=== PATIENT | female | born 1965 | race Hispanic/Latino ===

== ENCOUNTER → 2017-11-30 | Day surgery (SDC) | payer OTHER ==
[2017-11-26 09:20] LABS: ANION GAP 17.3 mmol/L (8-16); BLOOD UREA NITROGEN 6 mg/dL (7-26); BUN/CREATININE RATIO 9 (6-25); CALCIUM 9.6 mg/dL (8.4-10.2); CARBON DIOXIDE 24 mmol/L (22-29); CHLORIDE 104 mmol/L (98-107); CREATININE, SERUM 0.69 mg/dL (0.57-1.11); EST GLOMERULAR FILTRATION RATE > 60 ML/MIN (60-); GLUCOSE 166 mg/dL (74-118); POTASSIUM 4.3 mmol/L (3.5-5.1); SODIUM 141 mmol/L (136-145)
[~2017-11-30] MED LIST: ACETAMINOPHEN 1000 MG/100 ML IV ONE; BUPIVACAINE HCL 0.5% INJ 30 ML VIAL INJ ONE; CEFAZOLIN SOD 2 GM/D5W 50ML 50 ML IV ONE; DEXAMETHASONE SOD PHOS INJ 4 MG/ML VIAL ONE; ESTRADIOL1 MG PO; FENTANYL CITRATE/PF 100MCG/2 ML INJ ONE; KETOROLAC TROMETHAMINE 30 MG/ML VIAL ONE; LEVOTHYROXINE50 MCG PO; LIDOCAINE HCL 2% LOCAL INJ 5 ML SDV VIAL INJ ONE; METFORMIN HCL850 MG PO; MIDAZOLAM HCL 2 MG/2 ML VIAL ONE; MUPIROCIN 2% OINT 22 GM TUBE ONE; OMEPRAZOLE40 MG PO; ONDANSETRON HCL INJ 2 MG/ML VIAL ONE; PROPOFOL IV EMULSION 10 MG/ML 20 ML VIAL ONE; ROCURONIUM BROMIDE 10 MG/ML 5ML VIAL ONE; SEVOFLURANE INHAL SOLN 250 ML PEN BTL ONE; SIMVASTATIN40 MG PO; TOUJEO SC; TRULICITY PO; ULTRAM50 MG PO; VENLAFAXINE HCL75 MG PO; VITAMIN D1000 UNI1
[2017-11-30 10:00] VITALS: BP 130/74
--- NOTE | 2017-11-30 11:42 | Operative Report ---
DATE OF PROCEDURE: November 30, 2017 [employer]UC[employer]ER: None. PREOPERATIVE DIAGNOSES 1. Secondary tear of Achilles tendon. 2. Retrocalcaneal exostosis. 3. Equinus. 4. Plantar fasciitis. 5. Exostosis, plantar calcaneus, right. POSTOPERATIVE DIAGNOSES 1. Secondary tear of Achilles tendon. 2. Retrocalcaneal exostosis. 3. Equinus. 4. Plantar fasciitis. 5. Exostosis, plantar calcaneus, right. OPERATION PERFORMED 1. Secondary repair of Achilles tendon, right foot. 2. Gastrocnemius recession, right foot. 3. Endoscopic plantar fasciotomy, right foot. 4. Excision of calcaneal spurs, retrocalcaneal and plantar calcaneal, right foot. 5. Application of human allograft to augment tendon repair and to prevent adhesions. 6. Application of posterior splint. PATHOLOGY: None. ANESTHESIA: General anesthetic. HEMOSTASIS: Pneumatic thigh tourniquet at 350 mmHg. ESTIMATED BLOOD LOSS: Less than 10 mL. MATERIALS: 2.5 x 10 mm SonicAnchor times 2. AlloWrap 4 x 4 cm, reference number [id number], lot [id number], expiration 29 December 2018. PROCEDURE IN DETAIL: Under mild sedation, the patient was brought to the operating room and placed on the operating table in the supine position. Following IV sedation, anesthesia was obtained with a general anesthetic. At this point, the right foot was scrubbed, prepped and draped in the usual aseptic manner. The patient was positioned in prone position. The pneumatic thigh tourniquet was inflated to 350 mmHg. Secondary repair of Achilles tendon: Attention was then directed to the plantar aspect of the right foot, where a linear incision was made overlying the insertion of the Achilles tendon. The incision was deepened via sharp and blunt dissection to retract or cauterize neurovascular structures as necessary. It was deepened down to the level of the tendon. At this point, the tendon was then reflected off of the Achilles tendon. There was noted to be large retrocalcaneal exostosis. Utilizing sharp and blunt dissection, this was removed. The distal end of the Achilles tendon was thin, denuded. All nonviable tissue was removed. It was cleaned. It was debrided down to clean, viable tendon. Attention was directed to the gastrocnemius aponeurosis where a linear incision was made overlying this aponeurosis. The incision was deepened down to the level of the aponeurosis with care to retract or cauterize neurovascular structures as necessary. Once the aponeurosis was isolated, a Myron type of lengthening was then performed through and through in order to be able to reattach the Achilles back into the calcaneus. The Achilles was then reattached back into the calcaneus after the area was cleaned down to clean, viable, bleeding bone. Then 2.5 x 10 mm anchors were used times 2. It was reattached utilizing FiberWire suture. There were noted to be adequate alignment and adequate tension clinically and adequate placement of the anchors with intraop fluoroscopy. EPF: Attention was directed to the medial aspect of the right foot where a linear incision was made overlying the plantar fascia. The incision was deepened via sharp and blunt dissection, taking care to retract or cauterize neurovascular structures as necessary. It was deepened down to the level of the plantar fascia. The trocar and cannula were inserted. The trocar was removed. The camera was inserted. Medial, central and lateral bands were visualized. Medial and central bands were transected through and through, leaving the lateral band intact. Exostectomy, retrocalcaneus and plantar calcaneus. Under the use of intraop fluoroscopy, the exostosis at the retrocalcaneus was removed before reattachment back to the Achilles tendon utilizing a bone rongeur, a rasp, and an osteotome. The exostosis at the plantar aspect of the calcaneus was also removed utilizing a power rasp under the use of intraop fluoroscopy. All incisions were flushed with copious amounts of normal sterile saline solution. The AlloWrap was cut into 3. It was used in all 3 incisions in order to augment the repair, to decrease the inflammatory response, and to decrease adhesions to the area. The incisions were then closed, closing the deepest layer with 3-0 Vicryl, 4-0 Vicryl, and 4-0 nylon. Twenty mL of 0.5 Marcaine plain was given postop. A clean dressing was applied consisting of Adaptic ointment, 4 x 4's, Kerlix, and Webril. A posterior splint was applied and was secured utilizing an Isaiah bandage. The patient tolerated the procedure and anesthesia well without complications. She was transported to the recovery room with vital signs stable and vascular status intact to both feet. The patient will be discharged home when she meets criteria. She was given instructions to be strictly nonweightbearing, to ice and elevate the foot while at rest, to follow up with me in the office and to call the office if any questions, concerns or any problems arise. Job#: [id number]
== END | disposition home or self-care (01) ==
LOC: OR 05:23
PROVIDERS: ATTEND Podiatrist Foot & Ankle Surgery
DX: S86.011A Strain of right Achilles tendon, initial encounter (principal); M77.31 Calcaneal spur, right foot; M72.2 Plantar fascial fibromatosis; M24.574 Contracture, right foot; G47.33 Obstructive sleep apnea (adult) (pediatric); E11.9 Type 2 diabetes mellitus without complications; E03.9 Hypothyroidism, unspecified; K21.9 Gastro-esophageal reflux disease without esophagitis; E66.01 Morbid (severe) obesity due to excess calories; I49.3 Ventricular premature depolarization; E78.5 Hyperlipidemia, unspecified; Z91.048 Other nonmedicinal substance allergy status; X58.XXXA Exposure to other specified factors, initial encounter; Z01.810 Encounter for preprocedural cardiovascular examination; Z01.812 Encounter for preprocedural laboratory examination; Z79.84 Long term (current) use of oral hypoglycemic drugs
CPT/HCPCS: 27654; 27687; 28104; 28118; 29893; 36415 ×2; 80048; 82948; 93005; J1100; J1885; J2001; J2250; J2405; 76001

== ENCOUNTER → 2024-09-08 | Day surgery (SDC) | payer BC, OTHER ==
[~2024-09-08] MED LIST changes: -ACETAMINOPHEN 1000 MG/100 ML IV ONE; -BUPIVACAINE HCL 0.5% INJ 30 ML VIAL INJ ONE; -CEFAZOLIN SOD 2 GM/D5W 50ML 50 ML IV ONE; -DEXAMETHASONE SOD PHOS INJ 4 MG/ML VIAL ONE; +FAMOTIDINE20 MG PO; -FENTANYL CITRATE/PF 100MCG/2 ML INJ ONE; +HUMALOG100 UNIT/3 SC; -KETOROLAC TROMETHAMINE 30 MG/ML VIAL ONE; +LACTATED RINGER'S 1,000 ML ONE; -MUPIROCIN 2% OINT 22 GM TUBE ONE; -ONDANSETRON HCL INJ 2 MG/ML VIAL ONE; +OZEMPIC2 MG/0.75 SC; -ROCURONIUM BROMIDE 10 MG/ML 5ML VIAL ONE; -SEVOFLURANE INHAL SOLN 250 ML PEN BTL ONE
[2024-09-08 15:14] VITALS: BP 122/67; PULSE 71; RESP 16; O2SAT 97
== END | disposition home or self-care (01) ==
LOC: OR 11:53
PROVIDERS: ATTEND Internal Medicine Gastroenterology
DX: K29.50 Unspecified chronic gastritis without bleeding (principal); D12.3 Benign neoplasm of transverse colon; K44.9 Diaphragmatic hernia without obstruction or gangrene; K31.84 Gastroparesis; K59.00 Constipation, unspecified; K21.9 Gastro-esophageal reflux disease without esophagitis; K62.5 Hemorrhage of anus and rectum; K64.8 Other hemorrhoids; G47.33 Obstructive sleep apnea (adult) (pediatric); E11.9 Type 2 diabetes mellitus without complications; E03.9 Hypothyroidism, unspecified; E66.01 Morbid (severe) obesity due to excess calories; N39.0 Urinary tract infection, site not specified; I49.3 Ventricular premature depolarization; Z91.048 Other nonmedicinal substance allergy status; Z01.810 Encounter for preprocedural cardiovascular examination; Z79.84 Long term (current) use of oral hypoglycemic drugs; Z79.4 Long term (current) use of insulin; Z79.85 Long-term (current) use of injectable non-insulin antidiabetic drugs; Z79.899 Other long term (current) drug therapy; Z68.41 Body mass index [BMI] 40.0-44.9, adult; Z80.0 Family history of malignant neoplasm of digestive organs
CPT/HCPCS: 36415; 43239; 45385; 82948; 93005; J2003; J2250; J2704; J7121; 45378